=== PATIENT | female | born 1965 | race Caucasian/White ===

== ENCOUNTER 2022-08-09 10:04 | Emergency (ER) | payer OTHER, SELFPAY ==
[2022-08-09 10:12] VITALS: BP 116/68; PULSE 64; RESP 18; TEMP 36.4; O2SAT 100
--- NOTE | 2022-08-09 10:50 | ED.GENADULT ---
HPI - General Adult General Chief complaint: Upper Respiratory Infection Stated complaint: sore throat Source: patient Mode of arrival: ambulatory Limitations: no limitations History of Present Illness HPI narrative: Patient presents for evaluation of sore throat, sinus congestion and cough. She indicates she has had sinus congestion and a cough for years. She attributes these symptoms to smoking. She smokes half a pack per day. Cough is productive of clear/brown sputum. She also states that there is mold in her residence. She has some clear nasal drainage. No fever, chills, nausea, vomiting, shortness of breath, diarrhea, body aches. No recent sick contacts to her knowledge. She has had COVID in the past. She is requesting nicotine replacement to help her stop smoking. Related Data Home Medications Medication Instructions Recorded Confirmed melatonin 1 mg tablet 1 mg PO HS PRN Sleep 11/06/19 11/06/19 Allergies Allergy/AdvReac Type Severity Reaction Status Date / Time No Known Allergies Allergy Verified 11/06/19 11:19 Review of Systems Review of Systems: CONSTITUTIONAL: Denies fever, chills, or sweats. EYES: Denies visual changes, redness, or discharge. ENT: Reports sinus congestion, clear nasal drainage, sore throat CARDIOVASCULAR: Denies chest pain, palpitations, or edema. RESPIRATORY: Reports cough. Denies shortness of breath. GASTROINTESTINAL: Denies abdominal pain, nausea, vomiting, or diarrhea. GENITOURINARY: Denies dysuria or hematuria. SKIN: Denies rash or itching. MUSCULOSKELETAL: Denies back pain, joint pain, or myalgia. NEUROLOGIC: Denies headache, numbness, dizziness, or weakness. PSYCHIATRIC: Denies anxiety or depression. [facility] Past Medical History Medical History No pertinent past medical history Surgical History Surgical History History of inguinal hernia repair Family History Family History Mother Family history non-contributory Social History Social History Smoking packs per day: 0.5 Smoking cigarettes per day: 10.0 Smoking status: Current every day smoker Substance use: former Living arrangements: alone Spiritual care concerns: No Exam Narrative: GENERAL: Well-appearing, well-nourished, and in no acute distress. HEAD: Normocephalic, atraumatic. EYES: PERRLA and EOMI. ENT: Nares clear, no rhinorrhea or epistaxis. Mucous membranes moist. Oropharynx without tonsillar hypertrophy exudate or other lesions. There is mild posterior pharyngeal erythema. Uvula is midline. Bilateral TMs pearly packer nonbulging NECK: Supple. No adenopathy or masses. No carotid bruits or JVD CHEST: Clear to auscultation. No respiratory distress. No wheezes rales or rhonchi HEART: Regular rate and rhythm. No murmur heard. Normal peripheral pulses. ABDOMEN: Soft, nontender, nondistended, normal active bowel sounds. EXTREMITIES: Normal range of motion. No edema. SKIN: Warm, dry, no rash. NEURO: No focal deficits. Alert and oriented x3. PSYCH: Normal mood and affect. Course Course Emergency Course: This is a 57-year-old female who presented for evaluation of sore throat, cough, sinus congestion. She has a history of smoking and attributes her symptoms to this along with some mold in the home. She does not have any evidence of infection on exam and did not feel any diagnostic testing was necessary. We will provide her with some Cepacol and Tessalon. She plans to stop smoking. I provided her with instructions on smoking cessation. She also requested nicotine replacement. Will discharge with nicotine patches. Advised not to smoke while patch on. Follow-up outpatient for further evaluation and treatment and go to the ER for worsening symptoms. [facility]
== END 2022-08-09 10:57 | disposition home or self-care (01) ==
PROVIDERS: Emergency Provider Nurse Practitioner
DX: J02.9 Acute pharyngitis, unspecified (principal); R05.9 Cough, unspecified; F17.210 Nicotine dependence, cigarettes, uncomplicated; Z86.16 Personal history of COVID-19
CPT/HCPCS: 99213; G0463